=== PATIENT | female | born 1940 | race Caucasian/White ===

== ENCOUNTER 2016-07-04 08:33 | Day surgery (SDC) | payer MEDICARE, OTHER ==
[2016-06-29 11:19] LABS: BASOPHILS 0.3 %; BASOPHILS ABSOLUTE 0.03 10/3/uL (0.0-0.16); EOSINOPHILS 2.3 %; IMMATURE GRANULOCYTES 0.1 %; IMMATURE GRANULOCYTES ABSOLUTE 0.01 10/3/uL (0.0-0.11); LYMPHOCYTES 33.5 %; LYMPHOCYTES ABSOLUTE 2.94 10/3/uL (0.67-4.30); MEAN CORPUS HGB CONC 33.8 g/dL (32.0-36.0); MEAN CORPUSCULAR HEMOGLOB 31.8 pg (26.0-34.0); MEAN CORPUSCULAR VOLUME 94.2 fL (80-100); MEAN PLATELET VOLUME 10.6 fL (9.2-13.0); MONOCYTES 7.4 %; MONOCYTES ABSOLUTE 0.65 10/3/uL (0.21-1.20); NEUTROPHILS 56.4 %; NEUTROPHILS ABSOLUTE 4.94 10/3/uL (2.02-8.40); WHITE BLOOD CELLS 8.8 10/3/uL (4.5-10.5)
[2016-06-29 11:20] LABS: HEMATOCRIT 37.6 % (36.0-48.0); HEMOGLOBIN 12.7 g/dL (12.0-16.0); MANUAL DIFF NO %; PLATELET COUNT 340 10/3/uL (150-400); RED CELL COUNT 3.99 10/6/uL (4.0-5.6)
[2016-06-29 11:30] LABS: CALCIUM, SERUM 8.9 MG/DL (8.5-10.4); CHLORIDE, SERUM 102 MMOL/L (96-112); CO2 (CARBON DIOXIDE) 30 MMOL/L (24-34); GFR AFRICAN AMERICAN 82 ML/MIN (>=60); GFR NON AFRICAN AMERICAN 71 ML/MIN (>=60); GLUCOSE, SERUM 91 MG/DL (60-99); SODIUM, SERUM 141 MMOL/L (135-148)
[2016-06-29 11:31] LABS: BUN (BLOOD UREA NITROGEN) 19 MG/DL (6-23); POTASSIUM, SERUM 3.3 MMOL/L (3.5-5.3)
--- NOTE | ~2016-07-04 | OP ---
Record Of Operation [facility] [address] [place]. [address] NAME: SUMI JOYNER : 36 STATUS : REG [facility] PAT#: [id number] AGE: 75 ADM/REG DATE : 07/04/16 MR#: [id number] REPORT SERV DATE: 07/04/16 DICTATED BY: JOSE BROOKS DATE: 07/04/16 REPORT STATUS : Draft TRANSCRIBED BY: MODL DATE: 07/04/16 DATE OF PROCEDURE: 07/04/2016 PRIMARY SURGEON: Jose Brooks M.D. CONTRACT OFFICER: Jennifer Walters M.D. PREOPERATIVE DIAGNOSIS: Bilateral cystic pelvic masses with family history of gynecologic malignancy. POSTOPERATIVE DIAGNOSIS: Bilateral serous cystadenomas. PROCEDURE PERFORMED: CPT code 73867 da Fern (laparoscopic robotic) bilateral salpingo- oophorectomy. ESTIMATED BLOOD LOSS: 5 mL. MATERIAL FORWARDED TO LABORATORY EXAMINATION: Correct as listed on the pathology report. INDICATIONS AND FINDINGS: Sumi Joyner is a 75-year-old, 3, para 3, seen in consultation regarding bilateral multicystic pelvic masses without associated ascites, adenopathy, or other masses noted on her 06/14/2016 in-office pelvic ultrasound. Her CEA and CA-125 are reassuring at 1.7 and 6.7. She is status post vaginal hysterectomy. She has a daughter who recently of a gynecologic melanoma and she has a significant cancer phobia. She has no other complaints suspicious for advanced gynecologic malignancy. FINDINGS AT THE TIME OF SURGERY: She has bilateral serous cystadenomas, left greater than right. No other abnormalities noted. PROCEDURE IN DETAIL: The patient was taken to the operating room, where under general endotracheal anesthesia, she was placed in a modified lithotomy position using Walker stirrups. The abdomen and vagina were prepped and the patient was draped. A Veress needle was inserted in the left upper quadrant. Pneumoperitoneum was established. A non-bladed 8 mm cannula was placed approximately 8 cm above the umbilicus. The da Fern scope was inserted and under direct visualization, three 8 mm cannulas for the da Fern system were inserted, two in the lower quadrants and one in the right midaxillary line. An accessory 10/12 trocar was placed in the left upper quadrant. The patient was placed in the Trendelenburg and the robot was assembled from the console. A thorough intra-abdominal pelvic exploration was undertaken and the findings were as noted. Sharp electrocautery enterolysis was undertaken to restore normal anatomy. The retroperitoneal spaces were entered over the psoas muscles with extension to the round ligaments which were isolated, coagulated with bipolar cautery, and transected with monopolar scissors. The pararectal spaces were developed. The ureters were displaced inferiorly. The ovarian vessels were skeletonized, coagulated with bipolar cautery, and transected with monopolar scissors. The posterior leaves of the broad ligament were dissected to the insertions of the fallopian tubes at the vaginal cuff. These were coagulated with bipolar cautery and transected with Record Of Operation [address] [id number] NAME: SUMI JOYNER : 36 STATUS : REG [facility] PAT#: [id number] AGE: 75 ADM/REG DATE : 07/04/16 MR#: [id number] REPORT SERV DATE: 07/04/16 DICTATED BY: JOSE BROOKS DATE: 07/04/16 REPORT STATUS : Draft TRANSCRIBED BY: MODL DATE: 07/04/16 monopolar scissors. The specimens were placed in an anchor bag. The pelvis was irrigated, suctioned, inspected, and found to be free of clot, blood, or debris. They were removed through the anchor bag through the accessory port. The pneumoperitoneum was reduced. All instruments were removed. All counts were correct. The 10/12 fascial incision was closed with [id number] stitch of 0 Vicryl. The skin incisions were closed with subcuticular stitches of 4-0 Monocryl followed by Dermabond. The patient was awakened and taken to the recovery room in stable condition after having tolerated the procedure well. DC/ANN Jose Brooks M.D. / [id number] CC: Viridiana Rascon M.D.
[~2016-07-04 08:33] MED LIST: ASAB PO; CAT1 PO; CITRACEL; ESTRACE1 MG PO; FLEX PO; HCTZ25B PO; HUMIRA SC; HYDROCHLOROT25 MG PO; HYDROCODONE/APAP PO; LIALDA1.2 GM PO; LISINOPRIL40 MG PO; LOFIB160 PO; LORTAB10 PO; METAMUCIL CAN7 OZ PO; METHOC500B PO; MSCONT15 PO; MULTIVITAMI1 PO; NORCO1 TAB PO; PRILOSEC OTC20 MG PO; PRIN20 PO; PROMEGA PO; QUESTRAN4 GM PO; TOPXL100 PO; TRAN200 PO; TRANDAT300 PO; V2 PO; [UNRECOGNIZED DRUG - OTHER] PO
== END 2016-07-04 22:25 | disposition home or self-care (01) ==
LOC: SDC 08:33
PROVIDERS: Obstetrics & Gynecology Gynecologic Oncology
PROC: 0UT74ZZ Resection of Bilateral Fallopian Tubes, Percutaneous Endoscopic Approach (ICD-10-PCS; 2016-07-04)
PROC: 8E0W4CZ Robotic Assisted Procedure of Trunk Region, Percutaneous Endoscopic Approach (ICD-10-PCS; 2016-07-04)
PROC: 0UT24ZZ Resection of Bilateral Ovaries, Percutaneous Endoscopic Approach (ICD-10-PCS; principal; 2016-07-04 12:30)
DX: D27.1 Benign neoplasm of left ovary (principal); D27.0 Benign neoplasm of right ovary; N83.8 Other noninflammatory disorders of ovary, fallopian tube and broad ligament; N80.1 Endometriosis of ovary; N80.2 Endometriosis of fallopian tube; I10 Essential (primary) hypertension; M47.9 Spondylosis, unspecified; K21.9 Gastro-esophageal reflux disease without esophagitis
CPT/HCPCS: 36415; 71020; 80048; 85025; 86850; 86900; 86901; 88112; 88305; 88307; 93005; A9270-GY; J0694; J1170; J1885; J2405; J2710; J3010